=== PATIENT | male | born 1995 | race American Indian/Alaskan Native ===

== ENCOUNTER 2019-11-10 18:45 | Emergency (ER) | payer SELFPAY ==
[2019-11-10 19:06] VITALS: BP 154/104
--- NOTE | 2019-11-10 19:44 | Emergency Department Report ---
ED Fever HPI - General Chief Complaint: Fever Stated Complaint: FEVER PUI?: No Time Seen by Provider: 11/10/19 19:39 Source: patient - History of Present Illness Initial Comments: pt states temp or 103.2 at work evaluation station today. states cough and sore throat x 2 days. pt denies sob, no wheezing, no n/v, no sob at this time. Temp 98.3 at this time. pt appears well and nontoxic, is tolerating po intake. Timing/Duration: this morning Fever Severity/Quality: greater than 102 F Fever Therapy EMERGENCY DEPT TECH: none Associated Symptoms: chest pain, cough, sore throat ED Review of Systems ROS: Stated complaint: FEVER Other details as noted in HPI Constitutional: fever. denies: chills Eyes: denies: eye pain, eye discharge, vision change ENT: throat pain, congestion Respiratory: cough Cardiovascular: chest pain Endocrine: no symptoms reported Gastrointestinal: denies: abdominal pain, nausea, vomiting, diarrhea Genitourinary: denies: urgency, dysuria Musculoskeletal: denies: back pain, joint swelling, arthralgia Skin: denies: rash, lesions Neurological: as per HPI. denies: headache, weakness, numbness, paresthesias, vertigo Psychiatric: denies: anxiety, depression Hematological/Lymphatic: denies: easy bleeding, easy bruising ED Past Medical Hx - Past Medical History Hx Hypertension: Yes - Social History Smoking Status: Never Smoker Substance Use Type: None ED Physical Exam - General Limitations: No Limitations General appearance: alert, in no apparent distress - Head Head exam: Present: atraumatic, normocephalic - Eye Eye exam: Present: normal appearance, PERRL, EOMI Pupils: Present: normal accommodation - ENT ENT exam: Present: normal orophraynx, mucous membranes moist, TM's normal bilaterally, normal external ear exam - Expanded ENT Exam Expanded Ear exam: Present: normal external inspection Throat exam: Negative: tonsillar erythema, tonsillomegaly, tonsillar exudate, R peritonsillar mass, L peritonsillar mass - Neck Neck exam: Present: normal inspection, full ROM. Absent: tenderness, lymphadenopathy, thyromegaly - Respiratory Respiratory exam: Present: normal lung sounds bilaterally. Absent: respiratory distress, wheezes, stridor, chest wall tenderness - Cardiovascular Cardiovascular Exam: Present: regular rate, normal rhythm, normal heart sounds. Absent: systolic murmur, diastolic murmur, rubs, gallop - GI/Abdominal GI/Abdominal exam: Present: soft, normal bowel sounds. Absent: distended, tenderness, guarding, rebound, rigid, bruit, hernia - Rectal Rectal exam: Present: deferred - Extremities Exam Extremities exam: Present: normal inspection, full ROM, normal capillary refill - Back Exam Back exam: Present: normal inspection, full ROM. Absent: tenderness, CVA tenderness (R), CVA tenderness (L), vertebral tenderness, rash noted - Neurological Exam Neurological exam: Present: alert, oriented X3, CN II-XII intact, normal gait, reflexes normal - Psychiatric Psychiatric exam: Present: normal affect, normal mood - Skin Skin exam: Present: warm, dry, intact, normal color. Absent: rash ED Course Vital Signs 11/10/19 19:00 Temperature 98.3 F Pulse Rate 98 H Respiratory 18 Rate Blood Pressure 154/104 Blood Pressure 154/101 [Right] O2 Sat by Pulse 99 Oximetry ED Medical Decision Making - Radiology Data Radiology results: report reviewed, image reviewed Findings Reporting MD: Curry Pond Dictation Time: November 10, 2019 19:42 Drophammer Operator: Not available Technology Lab Teacher Date: CHEST 2 VIEWS INDICATION / CLINICAL INFORMATION: fever , cough. COMPARISON: None available. FINDINGS: SUPPORT DEVICES: None. HEART / MEDIASTINUM: No significant abnormality. LUNGS / PLEURA: No significant pulmonary or pleural abnormality. No pneumothorax. ADDITIONAL FINDINGS: No significant additional findings. IMPRESSION: 1. No acute findings. Signer Name: Curry Pond MD Signed: 11/10/2019 7:42 PM Workstation Name: [id number] - Medical Decision Making cdr normal, there is no fever at this time, this likely uri, plan otc nsaids, antitissive. pt will follow up with pcp in 2-3 days, return to ed if symptoms worsen. pt verbalized agreement and understanding of same. pt with htn episode todays denies headache, no dizziness , no light headedness no n/v, no diaphoresis, pt is a/o x 3, ambulatory with steady gait nad at this time. Critical care attestation.: If time is entered above; I have spent that time in minutes in the direct care of this critically ill patient, excluding procedure time. ED Disposition Clinical Impression: URI (upper respiratory infection) Qualifiers: URI type: unspecified viral URI Qualified Code(s): J06.9 - Acute upper respiratory infection, unspecified Disposition: TO HOME OR SELFCARE Is pt being admited?: No Does the pt Need Aspirin: No Condition: Stable Instructions: Upper Respiratory Infection (ED) Referrals: PRIMARY CARE, [Primary Care Provider] - 3-5 Days [facility] [Provider Group] - 3-5 Days Forms: Work/School Release Form(ED) Time of Disposition: 20:59
--- NOTE | 2019-11-10 20:47 | XRay Report ---
CHEST 2 VIEWS INDICATION / CLINICAL INFORMATION: fever , cough. COMPARISON: None available. FINDINGS: SUPPORT DEVICES: None. HEART / MEDIASTINUM: No significant abnormality. LUNGS / PLEURA: No significant pulmonary or pleural abnormality. No pneumothorax. ADDITIONAL FINDINGS: No significant additional findings. IMPRESSION: 1. No acute findings. Signer Name: Curry Pond MD Signed: 11/10/2019 8:42 PM Workstation Name: [id number]
== END 2019-11-10 21:48 | disposition home or self-care (01) ==
LOC: ED 18:45
DX: J06.9 Acute upper respiratory infection, unspecified (principal); I10 Essential (primary) hypertension
CPT/HCPCS: 71046; 99283